=== PATIENT | female | born 1950 | race Hispanic/Latino ===

== ENCOUNTER → 2018-01-01 | Outpatient (CLI) | payer OTHER | END | disposition home or self-care (01) | LOC: OIH 11:17 | PROVIDERS: ATTEND Family Medicine | DX: M40.46 Postural lordosis, lumbar region (principal); M25.551 Pain in right hip; T84.296A Other mechanical complication of internal fixation device of vertebrae, initial encounter; Y93.89 Activity, other specified; Y92.89 Other specified places as the place of occurrence of the external cause; Y99.8 Other external cause status | CPT/HCPCS: 72040; 72100 ==

== ENCOUNTER → 2018-11-17 | Outpatient (CLI) | payer OTHER | END | disposition home or self-care (01) | LOC: RAH 08:11 | PROVIDERS: ATTEND Family Medicine | DX: Z12.31 Encounter for screening mammogram for malignant neoplasm of breast (principal) | CPT/HCPCS: 77067 ==

== ENCOUNTER → 2019-05-16 | Outpatient (CLI) | payer OTHER | END | disposition home or self-care (01) | LOC: OIH 15:09 | PROVIDERS: ATTEND Family Medicine | DX: T84.226A Displacement of internal fixation device of vertebrae, initial encounter (principal); M47.816 Spondylosis without myelopathy or radiculopathy, lumbar region | CPT/HCPCS: 72100 ==

== ENCOUNTER → 2019-11-21 | Outpatient (CLI) | payer OTHER | END | disposition home or self-care (01) | LOC: RAH 09:22 | PROVIDERS: ATTEND Internal Medicine | DX: Z12.31 Encounter for screening mammogram for malignant neoplasm of breast (principal) | CPT/HCPCS: 77067 ==

== ENCOUNTER → 2020-01-09 | Outpatient (CLI) | payer OTHER, MEDICARE | END | disposition home or self-care (01) | LOC: RAH 13:31 | PROVIDERS: ATTEND Internal Medicine | DX: M47.816 Spondylosis without myelopathy or radiculopathy, lumbar region (principal) | CPT/HCPCS: 72148 ==

== ENCOUNTER → 2020-11-21 | Outpatient (CLI) | payer OTHER, MEDICARE | END | disposition home or self-care (01) | LOC: RAH 09:03 | PROVIDERS: ATTEND Internal Medicine | DX: Z12.31 Encounter for screening mammogram for malignant neoplasm of breast (principal) | CPT/HCPCS: 77067 ==

== ENCOUNTER → 2020-12-06 | Outpatient (CLI) | payer OTHER, MEDICARE | END | disposition home or self-care (01) | LOC: RAH 09:15 | PROVIDERS: ATTEND Internal Medicine | DX: I25.10 Atherosclerotic heart disease of native coronary artery without angina pectoris (principal); R07.9 Chest pain, unspecified | CPT/HCPCS: 71046 ==

== ENCOUNTER → 2020-12-20 | Outpatient (CLI) | payer OTHER, MEDICARE ==
[~2020-12-20] MED LIST: REGADENOSON 0.4 MG/5 ML PF SYG IVP SCH
== END | disposition home or self-care (01) ==
LOC: RAH 09:32
PROVIDERS: ATTEND Internal Medicine
DX: I25.10 Atherosclerotic heart disease of native coronary artery without angina pectoris (principal); R07.9 Chest pain, unspecified
CPT/HCPCS: 78452; 93017; 96374; A9500 ×2; J2785

== ENCOUNTER → 2021-02-05 | Outpatient (CLI) | payer OTHER, MEDICARE | END | disposition home or self-care (01) | LOC: RAH 11:13 | PROVIDERS: ATTEND Otolaryngology | DX: K21.9 Gastro-esophageal reflux disease without esophagitis (principal); H81.4 Vertigo of central origin; R13.10 Dysphagia, unspecified | CPT/HCPCS: 74230; 92611 ==

== ENCOUNTER → 2021-02-13 | Outpatient (CLI) | payer OTHER, MEDICARE | END | disposition home or self-care (01) | LOC: SHCH 13:10 | PROVIDERS: ATTEND Internal Medicine Cardiovascular Disease | DX: I20.9 Angina pectoris, unspecified (principal); R06.09 Other forms of dyspnea | CPT/HCPCS: 93306; 93356 ==

== ENCOUNTER → 2021-02-26 | Outpatient (CLI) | payer OTHER, MEDICARE | END | disposition home or self-care (01) | LOC: LAB 14:10 | PROVIDERS: ATTEND Otolaryngology | DX: H81.4 Vertigo of central origin (principal) | CPT/HCPCS: 36415; 82565; 84520 ==

== ENCOUNTER → 2021-03-04 | Outpatient (CLI) | payer OTHER, MEDICARE | END | disposition home or self-care (01) | LOC: SHCH 10:29 | PROVIDERS: ATTEND Internal Medicine Cardiovascular Disease | DX: I87.2 Venous insufficiency (chronic) (peripheral) (principal) | CPT/HCPCS: 93970 ==

== ENCOUNTER → 2021-03-13 | Outpatient (CLI) | payer OTHER, MEDICARE ==
[~2021-03-13] MED LIST changes: +GADOTERATE MEGLUMINE 10 MMOL/20 ML VIAL IV ONE; -REGADENOSON 0.4 MG/5 ML PF SYG IVP SCH
== END | disposition home or self-care (01) ==
LOC: RAH 11:03
PROVIDERS: ATTEND Otolaryngology
DX: R42 Dizziness and giddiness (principal)
CPT/HCPCS: 70553; A9575

== ENCOUNTER → 2023-02-02 | Outpatient (CLI) | payer OTHER, MEDICARE ==
[~2023-02-02] MED LIST changes: -GADOTERATE MEGLUMINE 10 MMOL/20 ML VIAL IV ONE; +IOHEXOL-350 75 ML VIAL IV ONE
== END | disposition home or self-care (01) ==
LOC: RAH 08:02
PROVIDERS: ATTEND Internal Medicine Gastroenterology
DX: K44.9 Diaphragmatic hernia without obstruction or gangrene (principal); K76.0 Fatty (change of) liver, not elsewhere classified; R10.32 Left lower quadrant pain; K57.30 Diverticulosis of large intestine without perforation or abscess without bleeding
CPT/HCPCS: 74178; Q9967

== ENCOUNTER → 2023-11-06 | Outpatient (CLI) | payer OTHER, MEDICARE | END | disposition home or self-care (01) | LOC: RAH 13:05 | PROVIDERS: ATTEND Internal Medicine | DX: Z12.31 Encounter for screening mammogram for malignant neoplasm of breast (principal) | CPT/HCPCS: 77067 ==

== ENCOUNTER → 2024-04-07 | Outpatient (CLI) | payer OTHER, MEDICARE | END | disposition home or self-care (01) | LOC: RAH 14:21 | PROVIDERS: ATTEND Internal Medicine | DX: S83.241D Other tear of medial meniscus, current injury, right knee, subsequent encounter (principal); M25.461 Effusion, right knee; M25.561 Pain in right knee; M23.8X1 Other internal derangements of right knee; M25.361 Other instability, right knee; X58.XXXD Exposure to other specified factors, subsequent encounter | CPT/HCPCS: 73721 ==

== ENCOUNTER → 2024-12-07 | Outpatient (CLI) | payer OTHER, MEDICARE ==
[~2024-12-07] MED LIST changes: +GADOTERATE MEGLUMINE 10 MMOL/20 ML VIAL IV ONE; -IOHEXOL-350 75 ML VIAL IV ONE
--- NOTE | 2024-12-07 15:24 | HMCIMG ---
MRI LUMBAR SPINE WITHOUT AND WITH CONTRAST INDICATION: Radiculopathy lumbar region TECHNIQUE: Long and short axis fat and water weighted sequences were obtained through the lumbar spine before and after the administration of 20 mL of Clariscan contrast material without adverse effect. COMPARISON: 01/09/2020 FINDINGS: L3-L5 fusion hardware contributes to susceptibility artifact. Normal lordosis of the lumbar spine is maintained. The lumbar vertebral bodies are normal in height, without evidence for acute compression fracture or osseous marrow replacing process. The conus medullaris is normal in signal and terminates at the appropriate level. Multilevel mild to moderate anterior endplate osteophytic spurring. T12-L1: Extremely shallow posterior disc displacement and left foraminal extension and mild disc height loss, without any significant neuroforaminal narrowing or central canal stenosis. L1-L2: Mixed shallow posterior disc osteophyte complex/shallow posterior disc displacement, mild to moderate disc height loss, and nominal bilateral facet disease without any significant neuroforaminal narrowing or central canal stenosis. L2-L3: Broad-based posterior disc-osteophyte complex formation, including right greater than left foraminal extension, moderate to severe disc height loss, and moderate hypertrophic bilateral facet disease, including mild to moderate bilaterally and template hypertrophy contributing to mild right greater than left inferior neural foraminal narrowing and moderate central canal stenosis with AP dimension of 4.0 mm. Chronic degenerative endplate changes also noted at this level. L3-L4: No significant disc displacement, neuroforaminal narrowing, or central canal stenosis. No significant facet disease identified. L4-L5: No significant disc displacement, neuroforaminal narrowing, or central canal stenosis. No significant facet disease identified. L5-S1: No significant disc displacement, neuroforaminal narrowing, or central canal stenosis. Moderate bilateral facet disease. No evidence for intraannular tear or discitis. Multilevel mild to moderate disc desiccation. The pre- and paraspinous soft tissues appear unremarkable. Following the administration of contrast, no abnormal areas of enhancement identified. ANCILLARY FINDINGS: A couple of very small incompletely imaged simple right renal cysts. IMPRESSION: Moderate central canal stenosis at the L2-L3 level as well as mild right greater than left inferior neural foraminal narrowing. Level by level analysis, additional minor degenerative changes, and pertinent negatives as reported.
== END | disposition home or self-care (01) ==
LOC: RAH 13:57
PROVIDERS: ATTEND Internal Medicine
DX: M48.061 Spinal stenosis, lumbar region without neurogenic claudication (principal); M47.26 Other spondylosis with radiculopathy, lumbar region; M25.78 Osteophyte, vertebrae; M48.8X6 Other specified spondylopathies, lumbar region; G95.29 Other cord compression
CPT/HCPCS: 72158; A9575

== ENCOUNTER → 2025-08-23 | Outpatient (CLI) | payer OTHER, MEDICARE ==
--- NOTE | 2025-08-24 05:49 | HMCIMG ---
EXAM: MR Thoracic Spine Without Intravenous Contrast. CLINICAL HISTORY: Intervertebral disc degeneration. TECHNIQUE: Magnetic resonance images of the thoracic spine in multiple planes. CONTRAST: None. COMPARISON: None. FINDINGS: The cervicothoracic and thoracolumbar junction are intact. No acute fracture. Moderate dextroscoliosis. Exaggerated thoracic kyphosis. Multilevel spondylosis is evident by marginal osteophytes and facet joint arthropathy. Multilevel disc desiccation and degenerative disc height reduction noted, more pronounced at the T9-T10 level. Normal vertebral body heights. Hemangioma noted in the T3 vertebral body. The thoracic cord is in an anatomic location without abnormal signals. No abnormal extra-axial masses are present. Cyst with thin internal septation measuring approximately 5.1 x 3.4 cm in the right lobe of liver, likely benign hepatic cyst. Small, simple cortical cyst in the upper pole of right kidney. [id number] findings are as follows: C7-T1: No disc bulge or herniation. No neural foraminal, lateral recess or spinal canal stenosis. T1-T2: No disc bulge or herniation. No neural foraminal, lateral recess or spinal canal stenosis. T2-T3: 1 mm disc osteophyte complex bulge causing mild indentation on the anterior thecal sac. No neural foraminal or lateral recess stenosis. T3-T4: No disc bulge or herniation. No neural foraminal, lateral recess or spinal canal stenosis. T4-T5: No disc bulge or herniation. No neural foraminal, lateral recess or spinal canal stenosis. T5-T6: No disc bulge or herniation. No neural foraminal, lateral recess or spinal canal stenosis. T6-T7: No disc bulge or herniation. No neural foraminal, lateral recess or spinal canal stenosis. T7-T8: No disc bulge or herniation. No neural foraminal, lateral recess or spinal canal stenosis. T8-T9: No disc bulge or herniation. No neural foraminal, lateral recess or spinal canal stenosis. T9-T10: 2 mm disc osteophyte complex bulge causing mild indentation on the anterior thecal sac. No neural foraminal or lateral recess stenosis. T10-T11: 3 mm disc osteophyte complex bulge causing mild indentation on the anterior thecal sac. No neural foraminal or lateral recess stenosis. T11-T12: 2 mm disc osteophyte complex bulge causing mild indentation on the anterior thecal sac. No neural foraminal or lateral recess stenosis. T12-L1: 3 mm left predominant disc osteophyte complex bulge causing mild indentation on the anterior thecal sac. No neural foraminal or lateral recess stenosis. L1-L2: 3 mm disc osteophyte complex bulge causing mild indentation on the anterior thecal sac. No neural foraminal or lateral recess stenosis. IMPRESSION: Moderate dextroscoliosis. Exaggerated thoracic kyphosis. Mild multilevel spondylosis and degenerative disc changes. Mild indentation on the anterior thecal sac at the T2-T3, T9-T10 through L1-L2 levels. /[place]
== END | disposition home or self-care (01) ==
LOC: RAH 14:06
PROVIDERS: ATTEND Neurological Surgery
DX: M47.814 Spondylosis without myelopathy or radiculopathy, thoracic region (principal); M51.35 Other intervertebral disc degeneration, thoracolumbar region; M40.294 Other kyphosis, thoracic region; M51.34 Other intervertebral disc degeneration, thoracic region; M25.78 Osteophyte, vertebrae; N28.1 Cyst of kidney, acquired
CPT/HCPCS: 72146